=== PATIENT | male | born 1990 | race Hispanic/Latino ===

== ENCOUNTER 2016-11-30 19:05 | Emergency (ER) | payer OTHER ==
[2016-11-30] MEDS ORDERED: NORCO 5/325 PO ONE (21:59)
[2016-11-30] MEDS ORDERED: MOTRIN PO ONE (21:59)
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
[2016-11-30] MEDS ORDERED: BOOSTRIX IM ONE (22:25)
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
[2016-11-30 23:50] VITALS: BP 134/86
== END 2016-11-30 23:49 | disposition home or self-care (01) ==
LOC: ED 19:05
DX: S63.502A Unspecified sprain of left wrist, initial encounter (principal); S50.812A Abrasion of left forearm, initial encounter; V49.49XA Driver injured in collision with other motor vehicles in traffic accident, initial encounter; Y93.9 Activity, unspecified; Y92.9 Unspecified place or not applicable; Y99.9 Unspecified external cause status
CPT/HCPCS: 90471; 90715